=== PATIENT | male | born 1980 | race Caucasian/White ===

== ENCOUNTER 2020-12-16 06:56 | Observation (INO) | payer OTHER ==
[~2020-12-16] VITALS: Ht 175.3 cm; Wt 83.2 kg
--- NOTE | 2020-12-16 07:51 | RAD ---
AP chest. HISTORY: Covid positive AP view was taken of the chest. There are mild bilateral hazy areas of infiltrate which would be cons istent with Covid pneumonia. There is no effusion. The heart is normal in size. IMPRESSION: 1. Mild basilar infiltrates more on the left than on the right suggesting pneumonia Electronically signed by: Rancho Magana MD (12/16/2020 7:49 AM) [id number]
--- NOTE | 2020-12-16 07:53 | EKG ---
[address] [address] Test Date: 2020-12-16 Test Time: 07:36:31 Pat Name: FORREST ZABALA Department: Room: Gender: M Assistant Superintendent: : 1980 Requested By: JAN JUAREZ Order Number: [id number] Reading MD: Measurements Intervals [place] Rate: 102 P: 36 MA: 144 QRS: 34 QRSD: 84 T: 14 QT: 318 QTc: 418 Interpretive Statements SINUS TACHYCARDIA OTHERWISE NORMAL ECG RI6.02 No previous ECG available for comparison
--- NOTE | 2020-12-16 07:54 | PHYS DOC ---
General Adult EDM: Chief Complaint: SOB HPI: HPI: 40-year-old male presents with COVID-19. The patient was diagnosed with COVID- 19 about 10 days ago with a home test. He is here in the hospital with his who also has COVID-19. They talked to the [facility] line who advised that the patient come in for evaluation. He has had mild tachycardia and a fever up to 103. He feels short of breath, has body aches, fatigue, intermittent cough. They were not vaccinated for COVID-19. Review of Systems: Review of Systems: Constitutional: Fever, body aches, fatigue Eyes: Denies change in visual acuity HENT: Denies nasal congestion or sore throat Respiratory: Cough with shortness of breath Cardiovascular: Denies chest pain or edema GI: Denies abdominal pain, nausea, vomiting, bloody stools or diarrhea : Denies dysuria Musculoskeletal: Denies back pain or joint pain Integument: Denies rash Neurologic: Denies headache, focal weakness or sensory changes Endocrine: Denies polyuria or polydipsia Lymphatic: Denies swollen glands Psychiatric: Denies depression or anxiety Physical Exam: PE: Constitutional: Well developed, well nourished, no acute distress, non-toxic appearance. [] HENT: Normocephalic, atraumatic, bilateral external ears normal, oropharynx moist, no oral exudates, nose normal. [] Eyes: PERRLA, EOMI, conjunctiva normal, no discharge. [] Neck: Normal range of motion, no tenderness, supple, no stridor. [] Cardiovascular: Heart rate 102, regular rhythm, no murmur [] Lungs & Thorax: Deferred due to isolation status [] Abdomen: Bowel sounds normal, soft, no tenderness, no masses, no pulsatile masses. [] Skin: Warm, dry, no erythema, no rash. [] Back: No tenderness, no CVA tenderness. [] Extremities: No tenderness, no cyanosis, no clubbing, ROM intact, no edema. [] Neurologic: Alert and oriented X 3, normal motor function, normal sensory function, no focal deficits noted. [] Psychologic: Affect normal, judgement normal, mood normal. [] EKG: EKG: Sinus rhythm, rate 102, normal axis, no ST elevation or depression. [] Radiology/Procedures: Radiology/Procedures: [] Impressions: AP chest. HISTORY: Covid positive AP view was taken of the chest. There are mild bilateral hazy areas of infiltrate which would be consistent with Covid pneumonia. There is no effusion. The heart is normal in size. IMPRESSION: 1. Mild basilar infiltrates more on the left than on the right suggesting pneumonia Electronically signed by: Anupama Parisi MD (12/16/2020 7:49 AM) [id number] DICTATED AND SIGNED BY: ANUPAMA PARISI MD DATE: 12/16/2048 CC: JAN JUAREZ DO; PCP,NO ~MTH0 0 Heart Score: C/O Chest Pain: N/A Risk Factors: Risk Factors: DM, Current or recent (<one month) smoker, HTN, HLP, family history of CAD, obesity. Risk Scores: Score 0 - 3: 2.5% MACE over next 6 weeks - Discharge Home Score 4 - 6: 20.3% MACE over next 6 weeks - Admit for Clinical Observation Score 7 - 10: 72.7% MACE over next 6 weeks - Early Invasive Strategies Course & Med Decision Making: Course & Med Decision Making Pertinent Labs and Imaging studies reviewed. (See chart for details) The patient's chest x-ray is suggestive of pneumonia. I will treat him with Rocephin and azithromycin. He has a low hemoglobin of 12.9. I will discharge him with azithromycin. His oxygen saturation has been 94% in the ER. He does not meet admission criteria. He is stable for discharge at this time. [] Dragon Disclaimer: Dragon Disclaimer: This electronic medical record was generated, in whole or in part, using a voice recognition dictation system. Departure Departure: Impression: Primary Impression: COVID-19 Disposition: HOME / SELF CARE / HOMELESS Condition: STABLE Referrals: PCP,NO (PCP) Additional Instructions: You have been tested for or diagnosed with COVID-19. It is an infection caused by a new type of coronavirus. COVID-19 will cause cold-like or mild flu symptoms in most. It can cause more severe symptoms like problems breathing in some. There is no treatment for COVID-19. The body will clear the infection over time. Self-care will help to ease discomfort. Steps to Take: Self-Care Rest as needed. Healthy habits may help you feel better. Steps include: Choose healthy foods including fruits and vegetables. Drink water throughout the day. Get plenty of sleep each night. If you smoke, try to quit. It may ease breathing. Avoid alcohol. Keep Others Healthy The virus can spread to others. Droplets are released every time you sneeze or cough. The droplets can get into the mouth, nose, or eyes of people near you and lead to infection. To lower the chances of spreading COVID-19 to others: Stay at home until your doctor has said it is safe to leave. If you tested positive this will mean staying isolated until both of the following are true: At least 7 days have passed since the start of illness. You are free of fever for at least 72 hours without the use of medicine. During this time: - Avoid public areas, events, or transportation. Do not return to work or [employer] until your doctor has said it is safe to do so. - Call ahead if you need to go to a medical center. Let them know you may have COVID-19. It will help them guide you where to go. They may also ask you to wear a facemask when you come to the office. - If you call for emergency medical services, let them know you may have COVID- 19. While at home: - Try to avoid close contact with others. Stay about 6 feet away. - If possible, spend most of your time in a separate room from others. - Use a face mask if you will be in close contact with others such as sharing a room or vehicle. - Have someone wipe down common surfaces in the home. Use household associate spa director every day on areas like doorknobs, counters, or sinks. - Cough or sneeze into a tissue. Throw the tissue away right after use. If a tissue is not available, cough or sneeze into your elbow. - Wash your hands often. Wash them after sneezing or coughing. Use soap and water and wash for at least 20 seconds. Alcohol based hand stone cleaner can be used if soap and water is not available. - Do not prepare food for others. Avoid sharing personal items like forks, spoons, or toothbrushes. - Avoid close contact with pets while you are sick. There is no evidence of the virus passing to pets. This is a safety step until more is known about this virus. Isolation can be frustrating. Social interaction can help. Keep in touch with friends and family through phone and tech options. You can still interact with others in your home, just keep a safe distance of about 6 feet. Follow-up: Your doctors office will check in with you to see if there are any changes in your health. You may be asked to keep track of symptoms to share with them. They will also let you know when you are clear to be in public again. Problems to Look Out For: Contact your doctor if your recovery is not going as you expect. Get emergency care if you have problems such as: - Trouble breathing - Nonstop chest pain or pressure - Changes in awareness, confusion, or problems waking - Lips or face have bluish color - Worsening of symptoms If you think you have an emergency, call for emergency medical services right away. As taken from [facility] Azithromycin (AZITHROMYCIN TABLET) 250 Mg Tablet 250 MG PO DAILY for ANTI-BIOTIC for 4 Days, #4 TAB 0 Refills Prov: JAN JUAREZ DO 12/16/20 JAN JUAREZ DO Dec 16, 2020 07:53
[2020-12-16 08:38] LABS: BASO % 0 % (0-3); EOS % 0 % (0-3); HEMATOCRIT 37.5 % (39.0-53.0); HEMOGLOBIN 12.9 g/dL (13.0-17.5); LYMPH # 0.8 x10^3/uL (1.0-4.8); LYMPH % 14 % (24-48); MEAN CORPUSCULAR HEMOGLOBIN 30 pg (25-35); MEAN CORPUSCULAR HGB CONC 34 g/dL (31-37); MEAN CORPUSCULAR VOLUME 86 fL (79-100); MONO # 0.3 x10^3/uL (0.0-1.1); MONO % 5 % (0-9); NEUT # 4.9 x10^3uL (1.8-7.7); NEUT % 81 % (31-73); PLATELET COUNT 164 x10^3/uL (140-400); RED BLOOD COUNT 4.36 x10^6/uL (4.30-5.70); RED CELL DISTRIBUTION WIDTH 13.8 % (11.5-14.5); WHITE BLOOD COUNT 6.1 x10^3/uL (4.0-11.0)
[2020-12-16 08:56] LABS: CALCIUM 7.9 mg/dL (8.5-10.1); CREATININE 0.9 mg/dL (0.7-1.3); GFR 93.9; POTASSIUM 3.5 mmol/L (3.5-5.1)
[2020-12-16 09:02] LABS: ALBUMIN 3.2 g/dL (3.4-5.0); ALBUMIN/GLOBULIN RATIO 0.8 (1.0-1.7); TOTAL BILIRUBIN 0.5 mg/dL (0.2-1.0); TOTAL PROTEIN 7.4 g/dL (6.4-8.2)
[2020-12-16] MEDS ORDERED: AZITHROMYCIN 500 MG in IV NORMAL SALINE 250ML 250 ML IV ONE (09:45)
[2020-12-16] MEDS ORDERED: DEXAMETHASONE SOD PHOS 10 MG/ML VIAL. IVP ONE (09:45)
[2020-12-16] MEDS ORDERED: IV NORMAL SALINE 250ML 250 ML ONE (10:08)
[2020-12-16] MEDS ORDERED: IV NORMAL SALINE 50ML 50 ML ONE (10:08)
[2020-12-16] MEDS ORDERED: AZITHROMYCIN 500 MG VIAL. IV ONE (10:08)
[2020-12-16] MEDS ORDERED: cefTRIAXone SODIUM 1 GM VIAL ONE (10:09)
[2020-12-16] MEDS ORDERED: AZIT250T6 PO (10:23)
[2020-12-16] MEDS ORDERED: ONDANSETRON PF 4 MG/2 ML VIAL. IVP ONE (11:15)
[2020-12-16] MEDS ORDERED: ONDANSETRON PF 4 MG/2 ML VIAL. IVP PRN (14:45)
--- NOTE | 2020-12-16 17:35 | NUR ---
Ricardo Thompson a 40yo male, was admitted, inpatient tele, Dr. Cazares for Covid 19, hypoxia. Pt settled into rm 103, placed in airborne & contact precautions. Admission assessment completed, pt connected to telemetry. Pt is currently on room air with oxygen saturation 94-96%. Pt states that he fell ill 1.5 weeks ago, his has been ill 2 weeks. They have traveled here from [place] to [place] to visit family. Reviewed poc with pt, pt verbalized agreement, will proceed and CTM. Pt was provided written copies of hospital and unit policies and procedures.
[2020-12-16 17:36] VITALS: BP 124/81
[2020-12-16 20:08] VITALS: BP 142/81
[2020-12-16] MEDS: DEXAMETHASONE SOD PHOS 4 MG/ML VIAL. IVP SCH (20:49)
[2020-12-16 22:44] VITALS: BP 110/70
[2020-12-17 05:32] VITALS: BP 127/79
[2020-12-17] MEDS: DEXAMETHASONE SOD PHOS 4 MG/ML VIAL. IVP SCH (07:59)
--- NOTE | 2020-12-17 10:48 | HP ---
ADMIT DATE: 12/16/2020 ATTENDING PHYSICIAN: Dr. Cazares. CHIEF COMPLAINT: Shortness of breath. HISTORY OF PRESENT ILLNESS: The patient is a 40-year-old gentleman who comes from [place]. He and his are visiting family here in [place]. He got sick, he was diagnosed with COVID-19 ten days ago with the home test. He has had fevers up to 103 degrees. He feels somewhat short of breath, body aches, myalgia, intermittent cough because of decreased saturation required a couple liters of oxygen. He was admitted to the hospital for further treatment. We gave him supplemental oxygen, breathing treatment as well as empiric intravenous corticosteroids. PAST MEDICAL HISTORY: Unremarkable for any chronic illnesses and he is healthy. He is not on any prescription meds. There is no history of diabetes, hypertension, or lung problems. SOCIAL HISTORY: He is a nonsmoker and nondrinker. ALLERGIES: HE HAS ALLERGIES TO SULFA DRUGS. PRESCRIPTION MEDICATIONS: None. FAMILY HISTORY: Both mom and dad are alive at age 62 and 65 respectively. They are in good health. He is with a 5-year-old son. He is employed as a embedded software manager. REVIEW OF SYSTEMS: Significant for the constitutional symptoms of fever, myalgias, body aches, nonproductive cough. No loss of taste. All other systems reviewed and turned to be negative. PHYSICAL EXAMINATION: GENERAL: When I saw him, this is a pleasant young gentleman. INITIAL VITAL SIGNS: Showed a blood pressure of 110/70, he is afebrile. Oxygen saturation by the time I saw him it was up to 95% on room air. HEENT: Head is without trauma. Pupils are reactive. Sclerae nonicteric. Oropharynx is clear. NECK: Supple, no bruits identified. LUNGS: Minimal rhonchi at the bases. CARDIOVASCULAR: Regular heart tones. No gallops. ABDOMEN: Soft. EXTREMITIES: Without edema. NEUROLOGIC: Focally intact. Speech is fluent. SKIN: Warm and dry. PERTINENT LABORATORY AND X-RAY STUDIES: Hemoglobin is 12.9 g/dL with a white count of 6100. Electrolytes, BUN and creatinine all within normal range. Cardiac enzymes negative for coronary ischemia and a chest x-ray showed mild basilar infiltrates suggesting atypical pneumonia. ASSESSMENT: 1. A 40-year-old gentleman with COVID pneumonia, mild case. 2. Mild hypoxemia. 3. Myalgia. 4. Clinical mild dehydration. PLAN: 1. Observation status admission. 2. Supplemental oxygen. 3. Diet as tolerated. 4. Empiric corticosteroids. JACLYN DR: Thee TID: [id number]
--- NOTE | 2020-12-17 10:54 | NUR ---
DISCHARGE IV SITE ET TELEMETRY DISCONTINUED FOR DISCHARGE. PT DOES NOT REQUIRE OXYGEN FOR DISCHARGE, ROOM AIR SATURATIONS ARE GOOD. STABLE, AWAKE, AMBULATORY INDEPENDENTLY IN ROOM. , ALSO A PATIENT, WILL BE DISCHARGED THIS MORNING WELL. HE WILL WAIT TO LEAVE UNTIL HER DC IS COMPLETE. DISCHARGE INSTRUCTIONS ET RX EXPLAINED TO PATIENT, ALL QUESTIONS ANSWERED TO PT SATISFACTION.
[2020-12-17 11:11] VITALS: BP 123/82
--- NOTE | 2020-12-17 18:15 | DS ---
DATE OF DISCHARGE: 12/17/2020 ATTENDING PHYSICIAN: Jim Cazares MD FINAL DISCHARGE DIAGNOSES: 1. COVID pneumonia. 2. Mild hypoxemia, resolved. 3. Clinical dehydration, rehydrated. HISTORY OF PRESENT ILLNESS: The patient is a 40-year-old gentleman visiting from [place]. He was diagnosed with a self-diagnosis COVID kit 10 days ago. He had myalgias, fevers, nonproductive cough. He had diminished saturations. He was admitted overnight for treatment and evaluation. PHYSICAL EXAMINATION: Please see the dictated note. PERTINENT LABORATORY AND X-RAY STUDIES: CBC and chemistry panel unremarkable. Chest x-ray showed mild interstitial infiltrate. No acute decompensation. COURSE IN THE HOSPITAL: The patient was admitted. He was started on empiric corticosteroids along with regular diet. He did well. Supplemental oxygen was added, this was weaned off by the second hospital day, his oxygen saturations were 95% on room air. His lungs had good breath sounds. He has no impending respiratory failure. He was ready for discharge. I recommended Gatorade orally along with prednisone 40 mg p.o. daily for the next 5 days. He is still contagious, needs quarantine for the next 10 days. The patient was then discharged from our hospital in stable condition with explicit drug and followup care. VALE/JOSE DR: Thee TID: [id number]
== END 2020-12-17 11:35 | disposition home or self-care (01) ==
LOC: ER 06:56 → INTOOBSV 14:39 → 1 SOUTH 14:39 → UNDOADMIN 14:39
PROVIDERS: ADMIT Hospitalist; ATTEND Hospitalist
DX: U07.1 COVID-19 (principal); J12.82 Pneumonia due to coronavirus disease 2019; R09.02 Hypoxemia; E86.0 Dehydration; M79.10 Myalgia, unspecified site; Z79.899 Other long term (current) drug therapy; Z88.2 Allergy status to sulfonamides
CPT/HCPCS: 36415; 71045; 80053; 84484; 85025; 93005; 96365; 96366; 96367; 96375; 96376; 99285; G0378; J0456; J0696; J1100; J2405; J7050; G0379